=== PATIENT | male | born 1965 | race Caucasian/White ===

== ENCOUNTER 2018-04-04 12:19 | Inpatient (IN) | payer BC ==
[~2018-04-04] VITALS: Ht 170.2 cm; Wt 83.5 kg
[2018-04-04 12:49] VITALS: BP 111/69
[2018-04-04] MEDS ORDERED: OMEPRAZOLE20 MG PO (13:29)
[2018-04-04] MEDS ORDERED: ATORVASTATIN CA20 MG PO (13:29)
[2018-04-04] MEDS ORDERED: ACID CONTROL150 MG PO (13:29)
[2018-04-04] MEDS ORDERED: LYRICA150 MG PO (13:30)
[2018-04-04] MEDS ORDERED: BACTRIM,SEPT1 TABLET PO (13:30)
[2018-04-04] MEDS ORDERED: OXYCODONE HCL10 MG PO (13:31)
[2018-04-04] MEDS ORDERED: DOXYCYCLINE HY100 MG PO (13:31)
[2018-04-04 14:10] LABS: HEMATOCRIT 35.1 % (38.0-50.0); HEMOGLOBIN 11.7 G/DL (12.5-16.6); MCH 26.7 PG (29.0-34.0); MCHC 33.3 G/DL (30.0-36.0); RBC DIS.WIDTH-SD 46.6 % (39-53); RED BLOOD COUNT 4.39 M/uL (4.00-5.50)
[2018-04-04 14:14] LABS: PLATELET COUNT 99 K/uL (156-360)
[2018-04-04 14:15] LABS: WHITE BLOOD COUNT 1.5 K/uL (4.1-10.2)
[2018-04-04 14:24] LABS: BILIRUBIN NEGATIVE; BLOOD NEGATIVE; COLOR AMBER ((YELLOW)); GLUCOSE (STRIP) NEGATIVE; KETONES 5; LEUKOCYTES NEGATIVE; NITRITE NEGATIVE; PROTEIN (STRIP) 100; SPECIFIC GRAVITY 1.025 (1.000-1.030)
[2018-04-04 14:25] LABS: INTER. NORMALIZED RATIO 1.2
[2018-04-04 14:26] LABS: APPEARANCE CLEAR ((CLEAR))
[2018-04-04 14:33] LABS: BACTERIA RARE /HPF; EPITHELIAL CELLS NONE SEEN /HPF; MUCUS TRACE /LPF; RED BLOOD CELLS 0-5 /HPF (0-5); UCUL ADDED? NO; WHITE BLOOD CELLS 0-5 /HPF (0-5)
[2018-04-04 14:33] LABS: ALBUMIN 3.7 G/DL (3.2-4.8); ALKALINE PHOSPHATASE 820 IU/L (3-129); ALT (GPT) 79 IU/L (3-49); AST (GOT) 108 IU/L (2-34); CHLORIDE 96 MEQ/L (99-109); GFR ESTIMATE (CALCULATED) > 59 mL/min/ (58.99-99999); GLUCOSE 96 mg/dL (70-99); POTASSIUM 3.5 MEQ/L (3.7-5.4); SODIUM 130 MEQ/L (136-147); TOTAL BILIRUBIN 0.9 MG/DL (0.0-1.0); TOTAL PROTEIN 6.8 G/DL (6.4-8.3); UREA NITROGEN (BUN) 19 mg/dL (9-23)
[2018-04-04 14:36] LABS: ABS NEUTROPHIL COUNT 1.3; ANISOCYTOSIS 1+; BAND NEUTROPHILS 43.3 % (0-8.0); BASOPHILS 0.9 %; EOSINOPHIL ABS CT 0.1; EOSINOPHILS 3.5 % (0-5.0); LYMPHOCYTES 6.2 % (15.0-45.0); METAMYELOCYTES 1.8 %; MICROCYTOSIS 1+; MONOCYTES 1.8 % (0-9.0); SEG.NEUTROPHILS 42.5 % (46.0-76.0)
[2018-04-04 14:47] LABS: C-REACTIVE PROTEIN 144.5 MG/L (0-10); CREATINE KINASE 46 IU/L (1-294)
[2018-04-04 15:41] VITALS: BP 97/57
[2018-04-04 16:13] LABS: ERTH.SED.RATE 57 MM/HR (0-20)
[2018-04-04 16:21] LABS: HDL CHOLESTEROL 8 MG/DL (Desirable>=40); LDL CHOLESTEROL 26 mg/dL (Desirable<100); NON-HDL CHOLESTEROL 77 mg/dL (Desirable<160); TOTAL CHOLESTEROL 85 mg/dL (Desirable<200); TRIGLYCERIDES 257 MG/DL (Normal: <150)
[2018-04-04 18:42] LABS: FERRITIN 2586 NG/ML (22-322)
[2018-04-04 19:20] VITALS: BP 112/62
[2018-04-04 23:15] VITALS: BP 97/54
[2018-04-05 03:30] VITALS: BP 110/67
[2018-04-05 06:19] LABS: IMM.RETIC FRACTION 8.4 % (3-19); RETIC HGB EQUIVALENT 31.2 (28-36); RETICULOCYTE COUNT 0.5 % (0.5-1.8)
[2018-04-05 06:22] LABS: HEMATOCRIT 30.6 % (38.0-50.0); HEMOGLOBIN 10.3 G/DL (12.5-16.6); MCHC 33.7 G/DL (30.0-36.0); MCV 80.1 FL (86-99); PLATELET COUNT 84 K/uL (156-360); RBC DIS.WIDTH-CV 16.2 % (11.8-14.6); RBC DIS.WIDTH-SD 46.7 % (39-53); RED BLOOD COUNT 3.82 M/uL (4.00-5.50)
[2018-04-05 06:32] LABS: WHITE BLOOD COUNT 1.4 K/uL (4.1-10.2)
[2018-04-05 06:40] LABS: ALBUMIN 3.2 G/DL (3.2-4.8); ALKALINE PHOSPHATASE 698 IU/L (3-129); ALT (GPT) 85 IU/L (3-49); AST (GOT) 107 IU/L (2-34); CHLORIDE 103 MEQ/L (99-109); CREATININE 0.9 MG/DL (0.6-1.3); GFR ESTIMATE (CALCULATED) > 59 mL/min/ (58.99-99999); GLUCOSE 101 mg/dL (70-99); LACTATE DEHYDROGENASE 312 IU/L (20-246); POTASSIUM 4.2 MEQ/L (3.7-5.4); SODIUM 133 MEQ/L (136-147); TOTAL PROTEIN 6.1 G/DL (6.4-8.3); UREA NITROGEN (BUN) 15 mg/dL (9-23)
[2018-04-05 06:41] LABS: TOTAL BILIRUBIN 0.7 MG/DL (0.0-1.0)
[2018-04-05 07:39] VITALS: BP 100/62
[2018-04-05 08:42] LABS: FOLIC ACID (FOLATE) 7.9 NG/ML (5.0-22.0)
[2018-04-05 11:44] VITALS: BP 110/72
[2018-04-05 12:26] LABS: BAND NEUTROPHILS 25.9 % (0-8.0); EOSINOPHILS 1.8 % (0-5.0); LYMPHOCYTES 12.9 % (15.0-45.0); METAMYELOCYTES 0.9 %; MONOCYTES 0.9 % (0-9.0); MYELOCYTES 0.9 %; SEG.NEUTROPHILS 56.4 % (46.0-76.0)
[2018-04-05 12:27] LABS: BURR CELLS 1+; PLAT.SUFFICIENCY VERY DECREASED; POIKILOCYTOSIS 1+
[2018-04-05 15:34] LABS: MONOSPOT (MONONUCLEOSIS SEROL) NEGATIVE
[2018-04-05 16:00] VITALS: BP 102/61
[2018-04-05 19:37] VITALS: BP 107/59
[2018-04-06 00:03] VITALS: BP 106/62
[2018-04-06 06:44] LABS: HEMATOCRIT 29.6 % (38.0-50.0); HEMOGLOBIN 9.8 G/DL (12.5-16.6); MCHC 33.1 G/DL (30.0-36.0); MCV 81.5 FL (86-99); PLATELET COUNT 106 K/uL (156-360); RBC DIS.WIDTH-SD 50.9 % (39-53); RED BLOOD COUNT 3.63 M/uL (4.00-5.50)
[2018-04-06 06:46] LABS: WHITE BLOOD COUNT 1.7 K/uL (4.1-10.2)
[2018-04-06 06:53] LABS: ALBUMIN 3.2 G/DL (3.2-4.8); ALKALINE PHOSPHATASE 622 IU/L (3-129); ALT (GPT) 85 IU/L (3-49); AST (GOT) 91 IU/L (2-34); CHLORIDE 106 MEQ/L (99-109); CREATININE 0.7 MG/DL (0.6-1.3); GFR ESTIMATE (CALCULATED) > 59 mL/min/ (58.99-99999); GLUCOSE 99 mg/dL (70-99); LACTATE DEHYDROGENASE 284 IU/L (20-246); POTASSIUM 4.3 MEQ/L (3.7-5.4); SODIUM 137 MEQ/L (136-147); TOTAL BILIRUBIN 0.5 MG/DL (0.0-1.0); TOTAL PROTEIN 6.1 G/DL (6.4-8.3); UREA NITROGEN (BUN) 9 mg/dL (9-23)
[2018-04-06 06:54] LABS: BASOPHIL (%) 0 % (0-1); EOSINOPHIL (%) 6.5 % (0-5); EOSINOPHIL COUNT 0.1 K/uL (0-0.3); LYMPHOCYTE (%) 31.2 % (15-42); LYMPHOCYTE COUNT 0.5 K/uL (1.0-2.8); MONOCYTE (%) 7.1 % (3-12); MONOCYTE COUNT 0.1 K/uL (0-0.8); NEUTROPHIL (%) 55.2 % (45-76); NEUTROPHIL COUNT 0.9 K/uL (1.8-6.4)
[2018-04-06 06:58] VITALS: BP 107/63
[2018-04-06 12:24] LABS: HEPATITIS C ANTIBODY Nonreactive
[2018-04-06 15:08] VITALS: BP 117/71
[2018-04-06 23:54] VITALS: BP 113/72
[2018-04-07 07:14] LABS: HEMATOCRIT 29.8 % (38.0-50.0); HEMOGLOBIN 9.8 G/DL (12.5-16.6); MCH 26.6 PG (29.0-34.0); MCHC 32.9 G/DL (30.0-36.0); MCV 80.8 FL (86-99); PLATELET COUNT 121 K/uL (156-360); RBC DIS.WIDTH-CV 16.9 % (11.8-14.6); RBC DIS.WIDTH-SD 50.3 % (39-53); RED BLOOD COUNT 3.69 M/uL (4.00-5.50)
[2018-04-07 07:15] LABS: WHITE BLOOD COUNT 1.4 K/uL (4.1-10.2)
[2018-04-07 07:25] LABS: C4 COMPLEMENT 46 MG/DL (10-40); IMMUNOGLOBULIN G 1429 MG/DL (650-1600); IMMUNOGLOBULIN M 381 MG/DL (50-300)
[2018-04-07 07:30] VITALS: BP 131/75
[2018-04-07 07:34] LABS: CHLORIDE 105 MEQ/L (99-109); CREATININE 0.6 MG/DL (0.6-1.3); GFR ESTIMATE (CALCULATED) > 59 mL/min/ (58.99-99999); GLUCOSE 127 mg/dL (70-99); POTASSIUM 4.2 MEQ/L (3.7-5.4); SODIUM 140 MEQ/L (136-147); UREA NITROGEN (BUN) 6 mg/dL (9-23)
[2018-04-07 09:29] LABS: TREPONEMA ANTIBODY NEGATIVE (NEGATIVE)
[2018-04-07 10:29] LABS: ALBUMIN 3.5 G/DL (3.2-4.8); ALKALINE PHOSPHATASE 596 IU/L (3-129); ALT (GPT) 108 IU/L (3-49); AST (GOT) 96 IU/L (2-34); DIRECT BILIRUBIN 0.2 mg/dL (0.0-0.3); TOTAL BILIRUBIN 0.6 MG/DL (0.0-1.0); TOTAL PROTEIN 6.8 G/DL (6.4-8.3)
[2018-04-07 10:52] LABS: EPITHELIAL CELLS RARE /HPF; RED BLOOD CELLS NONE SEEN /HPF (0-5); WHITE BLOOD CELLS 0-5 /HPF (0-5)
[2018-04-07 10:53] LABS: HIV-1/2 AB/AG COMBO Nonreactive
[2018-04-07 10:53] LABS: BACTERIA NONE SEEN /HPF; HYALINE CASTS RARE /LPF; MUCUS NONE SEEN /LPF
[2018-04-07 15:46] VITALS: BP 129/77
[2018-04-07 17:29] LABS: Cytomegalovirus IgG Antibody+ 4.3 U/mL (<0.60); Cytomegalovirus IgM Antibody+ 50.6 AU/mL (<30.00)
[2018-04-07 19:47] VITALS: BP 124/63
[2018-04-08 00:01] VITALS: BP 118/70
[2018-04-08 02:02] LABS: EBV Source Serum (())
[2018-04-08 04:24] VITALS: BP 120/79
[2018-04-08 06:23] LABS: HEMATOCRIT 29.5 % (38.0-50.0); HEMOGLOBIN 9.7 G/DL (12.5-16.6); MCH 26.6 PG (29.0-34.0); MCHC 32.9 G/DL (30.0-36.0); PLATELET COUNT 142 K/uL (156-360); RBC DIS.WIDTH-CV 16.8 % (11.8-14.6); RED BLOOD COUNT 3.64 M/uL (4.00-5.50); WHITE BLOOD COUNT 2.9 K/uL (4.1-10.2)
[2018-04-08 06:47] LABS: ALBUMIN 3.3 G/DL (3.2-4.8); ALKALINE PHOSPHATASE 450 IU/L (3-129); ALT (GPT) 90 IU/L (3-49); AST (GOT) 57 IU/L (2-34); DIRECT BILIRUBIN 0.1 mg/dL (0.0-0.3); TOTAL BILIRUBIN 0.5 MG/DL (0.0-1.0); TOTAL PROTEIN 6.1 G/DL (6.4-8.3)
[2018-04-08 07:00] VITALS: BP 114/70
[2018-04-08] MEDS ORDERED: PREDNISONE20 MG PO (08:30)
[2018-04-08] MEDS ORDERED: VALGANCICLOVIR450 MG PO (08:30)
[2018-04-08 08:45] LABS: FERRITIN 722 NG/ML (22-322)
[2018-04-08 14:47] LABS: Flow Number of Markers 22 (()); Flow Spec Viability 95 % (()); Flow Specimen Type PERIPHERAL BLOOD (())
[2018-04-08 15:27] LABS: CLINICAL INFORMATION NOT PROVIDED; NUMBER OF MARKERS 22; SPECIMEN TYPE BONE MARROW; SPECIMEN VIABILITY 94
[2018-04-09 04:11] LABS: DRVVT Mixing Study Interp Not Indicated (()); dRVVT Screen 39 sec (<=45)
[2018-04-09 04:41] LABS: ADD PTT REFLEX? Y; PTT-LA 41 sec (<=40)
[2018-04-09 07:40] LABS: ANTI-DOUBLE STRANDED DNA 38 U/mL (0-99)
[2018-04-09 11:56] LABS: CD19 Percentage 28 % (6-29); CD19, Absolute 101 cells/uL (110-660); CD3 Percentage 59 % (57-85); CD3, Absolute 219 cells/uL (840-3060); CD4 Percentage 33 % (30-61); CD4, Absolute 124 cells/uL (490-1740); CD4/CD8 Ratio 1.16 (0.86-5.00); CD8 Percentage 28 % (12-42); CD8, Absolute 107 cells/uL (180-1170); Lymphocytes, Absolute 370 cells/uL (850-3900)
[2018-04-12 12:27] LABS: Clinical Information NOT PROVIDED; Specimen Type PERIPHERAL BLOOD; Viability (%) 55
[2018-04-12 12:37] LABS: A PHAGOCYTOPHILUM IgG <1:64; A PHAGOCYTOPHILUM IgM <1:20
[2018-04-13 10:50] LABS: ANTI-CYCLC CITRULLINATED PEPT+ <16 Units (<20)
[2018-04-14 01:39] LABS: HAPTOGLOBIN+ 345 mg/dL (43-212)
== END 2018-04-08 10:08 | disposition home or self-care (01) | DRG 864 ==
LOC: 2EASTP 12:19
PROVIDERS: Hospitalist; Internal Medicine
PROC: 07DR3ZX Extraction of Iliac Bone Marrow, Percutaneous Approach, Diagnostic (ICD-10-PCS; principal; 2018-04-05)
DX: R50.9 Fever, unspecified (principal); D61.818 Other pancytopenia; R74.0 Nonspecific elevation of levels of transaminase and lactic acid dehydrogenase [LDH]; R94.5 Abnormal results of liver function studies; E55.9 Vitamin D deficiency, unspecified; G89.29 Other chronic pain; E78.1 Pure hyperglyceridemia; E78.5 Hyperlipidemia, unspecified; K21.9 Gastro-esophageal reflux disease without esophagitis; M19.90 Unspecified osteoarthritis, unspecified site; R21 Rash and other nonspecific skin eruption; M54.5 Low back pain; Z98.1 Arthrodesis status
CPT/HCPCS: 71260; 74177; 76705; 77012; 78315; 80048; 80053; 80061; 80076; 81003; 81015; 82525 90; 82550; 82607; 82728; 82746; 82784; 83010 90; 83605; 83615; 84630 90; 85007; 85025; 85025 91; 85027; 85046; 85060; 85384; 85597 90; 85610; 85613 90; 85651; 85730 90; 86038; 86140; 86146 90; 86147 90; 86160; 86162 90; 86200 90; 86235; 86308; 86355 90; 86359 90; 86360 90; 86430; 86644 90; 86645 90; 86664; 86665; 86666 90; 86747 90; 86780; 86803; 86860; 86870; 86880; 87040; 87207; 87389; 87799 90; 93005; A9503; J1650; J2060; J3010; J7030; J7512